=== PATIENT | female | born 2000 | race Caucasian/White ===

== ENCOUNTER 2023-06-19 23:12 | Emergency (ER) | payer OTHER, SELFPAY ==
--- NOTE | 2023-06-19 23:14 | ECG_ITS ---
Measurements Intervals [place] Rate: 154 P: -52 NC: 103 QRS: 154 QRSD: 92 T: -25 QT: 281 QTc: 451 Interpretive Statements SINUS TACHYCARDIA WITH SHORT NC INTERVAL, POSSIBLE ATRIAL FLUTTER MISSING LEAD II RIGHT AXIS DEVIATION POOR R WAVE PROGRESSION, CONSIDER ANTERIOR INFARCT ST-T WAVE ABNORMALITY IN INFERIOR LEADS- CONSIDER ISCHEMIA BASELINE ARTIFACT- I, II, AVL ABNORMAL ECG NO PREVIOUS ECG AVAILABLE FOR COMPARISON Electronically Signed On 06-20-2023 7:27:42 CDT by Sergio Henao D.O.
[2023-06-19 23:31] VITALS: BP 148/85; PULSE 148; RESP 22; TEMP 37.3; O2SAT 98
[2023-06-19] MEDS: SODIUM CHLORIDE 0.9% IV 1,000 ML 999 ML IV CONT (23:49)
[2023-06-19] MEDS: LORazepam INJ (*CRX) 2 MG/ML VIAL 1 MG IV PUSH (23:49)
[2023-06-19 23:55] VITALS: PULSE 134; RESP 15; O2SAT 99
[2023-06-20] VITALS (23 sets, daily range): BP systolic 105–130; BP diastolic 62–91; PULSE 85–133; RESP 13–23; O2SAT 97–100
[2023-06-20] MEDS: SODIUM CHLORIDE 0.9% IV 1,000 ML 999 ML IV CONT (00:17)
[2023-06-20 00:26] LABS: Basophils Percent Auto 0.3 % (0.2-1.2); Eosinophils Percent Auto 0.2 % (0-4.4); Hematocrit 41.2 % (37.0-47.0); Hemoglobin 13.9 g/dL (12.0-15.0); Immature Granulocyte Absolute 0.03 K/mm3 (0.00-0.031); Immature Granulocyte Percent A 0.3 % (0-0.5); Lymphocytes Absolute Auto 1.56 K/mm3 (0.9-3.2); Lymphocytes Percent Auto 13.3 % (18.3-44.2); Mean Corpuscular HGB Conc 33.7 g/dl (32-36); Mean Corpuscular Hemoglobin 30.7 pg (26-34); Mean Corpuscular Volume 90.9 fl (80-100); Monocytes Absolute Auto 0.6 K/mm3 (0.1-0.6); Monocytes Percent Auto 5.5 % (2.6-8.5); Neutrophils Absolute Auto 9.5 K/mm3 (1.3-6.7); Neutrophils Percent Auto 80.4 % (45.5-73.1); Platelet Count Result 303 k/mm3 (150-375); Red Blood Count 4.53 M/mm3 (4.2-5.4); Red Cell Distribution Width 11.9 % (11.5-14.5); White Blood Count 11.7 K/mm3 (4.5-10.0)
[2023-06-20 00:27] LABS: Alanine Aminotransferase 20 U/L (6-35); Albumin Level 4.8 g/dL (3.5-5.1); Alkaline Phosphatase 68 U/L (38-126); Anion Gap 13 mmol/L (8-16); Aspartate Amino Transferase 28 U/L (14-36); Bilirubin,Total 0.7 mg/dL (0.2-1.3); Blood Urea Nitrogen 13 mg/dL (7-17); Calcium 9.5 mg/dL (8.4-10.2); Carbon Dioxide 21 mmol/L (22-30); Chloride 103 mmol/L (98-107); Estimated CRCL calculation 128 ml/min; Estimated Glomerular Filt Rate > 60; Glucose 121 mg/dL (65-110); Magnesium 1.8 mg/dL (1.6-2.3); Potassium 3.8 mmol/L (3.4-5.0); Sodium 137 mmol/L (137-145)
[2023-06-20] MEDS: LORazepam INJ (*CRX) 2 MG/ML VIAL 1 MG IV PUSH (00:47)
[2023-06-20] MEDS: MAGNESIUM SULF 1 GM/D5W 100 ML 1 GM/100 ML BAG IVPB (00:47)
--- NOTE | 2023-06-20 00:58 | ED.GENADULT ---
HPI - General Adult General Chief complaint: Arrhythmia/Palpitations Stated complaint: heart pounding Time Seen by Provider: 06/19/23 23:34 History of Present Illness HPI narrative: Patient is a 22-year-old female who presents the emergency department with chief complaint of palpitations. Patient reports that she took some Adderall earlier this morning that was an extended release and then this evening was relaxing had intercourse with her partner and then ate a THC edible the patient reports that she felt as though her heart started beating extremely fast and decided to come to the emergency department for evaluation. Related Data Allergies Allergy/AdvReac Type Severity Reaction Status Date / Time No Known Allergies Allergy Verified 06/19/23 23:35 Review of Systems Review of Systems: A 10 system review of systems was completed on the patient and is negative except for what is stated in the HPI. Nursing and ancillary documentation was reviewed. Exam Narrative: GENERAL: Well-appearing, well-nourished, and in no acute distress. HEAD: Normocephalic, atraumatic. EYES: PERRLA and EOMI. ENT: Nares clear, no rhinorrhea or epistaxis. Mucous membranes dry. NECK: Supple. CHEST: Clear to auscultation. No respiratory distress. HEART: Tachycardic rate and regular rhythm. No murmur heard. Normal peripheral pulses. ABDOMEN: Soft, nontender, nondistended, normal active bowel sounds. EXTREMITIES: Normal range of motion. No edema. SKIN: Warm, dry, no rash. NEURO: No focal deficits. Alert and oriented x3. PSYCH: Normal mood and affect. Course Vital Signs Vital signs: Vital Signs Temperature 37.3 C 06/19/23 23:31 Pulse Rate 148 H 06/19/23 23:31 Respiratory Rate 22 H 06/19/23 23:31 Blood Pressure 148/85 H 06/19/23 23:31 Pulse Oximetry 98 06/19/23 23:31 Oxygen Delivery Room Air 06/19/23 23:31 Temperature 37.3 C 06/19/23 23:31 Pulse Rate 91 06/20/23 02:17 Respiratory Rate 15 06/20/23 02:17 Blood Pressure 106/69 06/20/23 02:17 Pulse Oximetry 98 06/20/23 02:17 Oxygen Delivery Room Air 06/19/23 23:31 Medical Decision Making MDM Narrative Medical decision making narrative: Differential diagnosis includes electrolyte abnormality, medication side effect, dehydration, SVT EKG showed a narrow complex tachycardia with a rate of 154 After receiving IV fluids and Ativan the patient's heart rate has come down to 92 Laboratory studies were obtained which showed normal symptoms electrolytes were within normal limits potassium was 3.8 Repeat EKG showed sinus rhythm rate of [address] elevation or ST depression Vital Signs Vital Signs: Vital Signs Temperature 37.3 C 06/19/23 23:31 Pulse Rate 148 H 06/19/23 23:31 Respiratory Rate 22 H 06/19/23 23:31 Blood Pressure 148/85 H 06/19/23 23:31 Pulse Oximetry 98 06/19/23 23:31 Oxygen Delivery Room Air 06/19/23 23:31 Temperature 37.3 C 06/19/23 23:31 Pulse Rate 91 06/20/23 02:17 Respiratory Rate 15 06/20/23 02:17 Blood Pressure 106/69 06/20/23 02:17 Pulse Oximetry 98 06/20/23 02:17 Oxygen Delivery Room Air 06/19/23 23:31 Lab Data 06/20/23 00:07 06/19/23 23:40 Labs: Lab Results 06/19/23 06/20/23 06/20/23 Range/Units 23:40 00:07 01:31 WBC 11.7 H (4.5-10.0) K/mm3 RBC 4.53 (4.2-5.4) M/mm3 Hgb 13.9 (12.0-15.0) g/dL Hct 41.2 (37.0-47.0) % MCV 90.9 (80-100) fl MCH 30.7 (26-34) pg MCHC 33.7 (32-36) g/dl RDW 11.9 (11.5-14.5) % Plt Count 303 (150-375) k/mm3 MPV 10.0 (7.4-10.4) fl Immature Gran % (Auto) 0.3 (0-0.5) % Neut % (Auto) 80.4 H (45.5-73.1) % Lymph % (Auto) 13.3 L (18.3-44.2) % [place] % (Auto) 5.5 (2.6-8.5) % Eos % (Auto) 0.2 (0-4.4) % Baso % (Auto) 0.3 (0.2-1.2) % Lymph # (Auto) 1.56 (0.9-3.2) K/mm3 [place] # (Auto) 0.6 (0.1-0.6) K/mm3 Eos # (Auto) 0.0 (0-0
[2023-06-20 01:39] LABS: Appearance Urine Clear (Clear); Bilirubin Urine Negative (Negative); Blood Urine Negative (Negative); Color Urine Yellow (Yellow); Glucose Urine UA Negative (Negative); Ketones Urine Negative (Negative); Leukocyte Esterase Ur Negative LEU/UL (Negative); Nitrate Urine Negative (Negative); Protein Urine Negative (Negative); Specific Grav Ur 1.005 (1.001-1.035); Urobilinogen Urine 0.2 mg/dL (<2.0); pH Urine 6.5 (5.0-9.0)
[2023-06-20 01:58] LABS: Add Urine Microscopic? NO
--- NOTE | 2023-06-20 02:51 | ECG_ITS ---
Measurements Intervals [place] Rate: 96 P: 33 [place]: 185 QRS: 104 QRSD: 99 T: 26 QT: 357 QTc: 452 Interpretive Statements SINUS RHYTHM RIGHT AXIS DEVIATION PATTERN CONSISTENT WITH PULMONARY DISEASE BORDERLINE ECG COMPARED TO ECG 06/19/2023 23:21:45 SINUS RHYTHM NOW PRESENT Electronically Signed On 06-20-2023 7:31:32 CDT by Sergio Henao D.O.
== END 2023-06-20 03:13 | disposition home or self-care (01) ==
PROVIDERS: Emergency Provider Emergency Medicine
DX: R00.2 Palpitations (principal)
CPT/HCPCS: 36415; 80053; 81003; 83735; 85025; 93005; 96361; 96365; 96374; 96375; 99284; J2060; J3475; J7030

== ENCOUNTER 2023-08-14 01:53 | Emergency (ER) | payer OTHER, SELFPAY ==
--- NOTE | ~2023-08-14 | CT_ITS ---
Non-contrast Head CT History: Headache Technique: Axial non-contrast imaging of the brain was performed. Dose reduction technique was used on this scan by utilizing automated exposure control and iterative reconstruction technique. The dose -length product (DLP) was 605.33 mGy-cm. Findings: There is no evidence of intracranial hemorrhage, mass lesion, or acute infarct. Brain par enchyma appears normal. The ventricles and subarachnoid spaces are normal in size. The calvarium ap pears normal. The visualized paranasal sinuses and mastoid air cells are clear. Impression: No significant abnormality seen. Reviewed, dictated and finalized at location . TOLOGIST Impression: No significant abnormality seen.
[2023-08-14 01:56] VITALS: BP 155/66; PULSE 105; RESP 18; TEMP 36.7; O2SAT 100
--- NOTE | 2023-08-14 02:14 | ED.GENADULT ---
HPI - General Adult General Chief complaint: Headache <SAUD Talamantes Last Filed: 08/14/23 02:59> Stated complaint: headache <SAUD Talamantes Last Filed: 08/14/23 02:59> Time Seen by Provider: 08/14/23 02:00 <SAUD Talamantes Last Filed: 08/14/23 02:59> Source: patient <SAUD Talamantes Last Filed: 08/14/23 02:59> Mode of arrival: ambulatory <SAUD Talamantes Last Filed: 08/14/23 02:59> Limitations: no limitations <SAUD Talamantes Last Filed: 08/14/23 02:59> History of Present Illness HPI narrative: This is a 23-year-old female who presents to the ED with chief complaint of headache x3 days. Reports I think I am having the worst headache of my life. States she does not normally get headaches or migraines. Reports that the top of her scalp started hurting initially and has since spread throughout the whole head. She does note that it seems to be somewhat positional in nature; worse whenever she lays down. States she stopped taking her Adderall yesterday because she was unsure if it was affecting it. States she stopped smoking weed 1.5 weeks ago. When I ask about speech changes, she states that she has been having increased episodes of confusion and pausing while speaking and relates this to her psychosis. Reports that she feels like everything is not real sometimes. Reports she is very focused on the involuntary like her heartbeat or what her brain is doing. States the last time she had a headache like this, it felt like something was gushing down the back of my neck. Denies any injuries. Denies sick contacts or recent illness. Denies numbness, weakness, syncope, fevers, chills, nausea, vomiting, neck pain. <SAUD Talamantes Last Filed: 08/14/23 02:59> Related Data Allergies/adverse reactions: Allergies Allergy/AdvReac Type Severity Reaction Status Date / Time No Known Allergies Allergy Verified 08/14/23 02:01 <SAUD Talamantes Last Filed: 08/14/23 02:59> Review of Systems Review of Systems: All systems as dictated in HPI <Michael Ratliff PA-C - Last Filed: 08/14/23 02:59> Exam Narrative: GENERAL: Well-appearing, well-nourished, and in no acute distress. HEAD: Normocephalic, atraumatic. EYES: PERRLA and EOMI. ENT: Nares clear, no rhinorrhea or epistaxis. Mucous membranes moist. Oropharynx without tonsillar hypertrophy exudate or other lesions. NECK: Supple. No adenopathy or masses. No meningeal signs. CHEST: No respiratory distress. Clear to auscultation. No wheezes rales or rhonchi HEART: Regular rate and rhythm. No murmur heard. Normal peripheral pulses. ABDOMEN: Soft, nontender, nondistended, normal active bowel sounds. MSK: Normal range of motion. No edema. SKIN: Warm, dry, no rash. NEURO: Alert and oriented x4. No focal deficits. Cranial nerves II through XII intact. 5 out of 5 strength and sensation in the upper and lower extremities. Negative pronator drift. Ambulatory without difficulty. No dysarthria. Answers questions appropriately. PSYCH: Normal mood and affect. <Michael Ratliff PA-C - Last Filed: 08/14/23 02:59> Course MANAGER FREELANCE/PA Physician Supervision This visit was performed by both the physician and an APC. I performed all aspects of the MDM as documented <Jg Daniel MD - Last Filed: 08/14/23 04:48> Vital Signs Vital signs: Vital Signs Temperature 36.7 C 08/14/23 01:56 Pulse Rate 105 H 08/14/23 01:56 Respiratory Rate 18 08/14/23 01:56 Blood Pressure 155/66 H 08/14/23 01:56 Pulse Oximetry 100 08/14/23 01:56 Oxygen Delivery Room Air 08/14/23 01:56 Temperature 36.7 C 08/14/23 01:56 Pulse Rate 105 H 08/14/23 01:56 Respiratory Rate 18 08/14/23 01:56 Blood Pressure 155/66 H 08/14/23 01:56 Pulse Oximetry 100 08/14/23 01:56 Oxygen Delivery Room Air 08/14/23 01:56 <Michael Ratliff PA-C - Last Filed: 08/14/23 02:59>
[2023-08-14] MEDS: KETOROLAC 15 MG/ML VIAL (*BKC) IV PUSH (03:06)
[2023-08-14] MEDS: PROCHLORPERAZINE EDISYLATE 10 MG/2 ML VIAL IV PUSH (03:06)
[2023-08-14] MEDS: diphenhydrAMINE HCl INJ 50 MG/ML VIAL 25 MG IV PUSH (03:06)
[2023-08-14] MEDS: SODIUM CHLORIDE 0.9% IV 1,000 ML 999 ML IV CONT (03:07)
[2023-08-14 03:11] LABS: Basophils Percent Auto 0.1 % (0.2-1.2); Eosinophils Absolute Auto 0.1 K/mm3 (0-0.3); Eosinophils Percent Auto 1.1 % (0-4.4); Hematocrit 41.7 % (37.0-47.0); Hemoglobin 14.4 g/dL (12.0-15.0); Immature Granulocyte Absolute 0.02 K/mm3 (0.00-0.031); Immature Granulocyte Percent A 0.2 % (0-0.5); Lymphocytes Absolute Auto 1.73 K/mm3 (0.9-3.2); Lymphocytes Percent Auto 21.1 % (18.3-44.2); Mean Corpuscular HGB Conc 34.5 g/dl (32-36); Mean Corpuscular Hemoglobin 30.4 pg (26-34); Mean Platelet Volume 10.2 fl (7.4-10.4); Monocytes Absolute Auto 0.6 K/mm3 (0.1-0.6); Monocytes Percent Auto 6.7 % (2.6-8.5); Neutrophils Absolute Auto 5.8 K/mm3 (1.3-6.7); Neutrophils Percent Auto 70.8 % (45.5-73.1); Platelet Count Result 307 k/mm3 (150-375); Red Blood Count 4.74 M/mm3 (4.2-5.4); Red Cell Distribution Width 11.7 % (11.5-14.5); White Blood Count 8.2 K/mm3 (4.5-10.0)
[2023-08-14 03:37] LABS: Alanine Aminotransferase 19 U/L (6-35); Albumin Level 4.6 g/dL (3.5-5.1); Alkaline Phosphatase 79 U/L (38-126); Anion Gap 10 mmol/L (8-16); Aspartate Amino Transferase 26 U/L (14-36); Bilirubin,Total 0.6 mg/dL (0.2-1.3); Blood Urea Nitrogen 11 mg/dL (7-17); Calcium 9.6 mg/dL (8.4-10.2); Carbon Dioxide 23 mmol/L (22-30); Chloride 105 mmol/L (98-107); Estimated CRCL calculation 169 ml/min; Estimated Glomerular Filt Rate > 60; Glucose 107 mg/dL (65-110); Potassium 3.8 mmol/L (3.4-5.0); Sodium 138 mmol/L (137-145)
[2023-08-14 05:04] VITALS: BP 139/82; PULSE 88; RESP 16; O2SAT 100
== END 2023-08-14 05:05 | disposition left against medical advice (07) ==
PROVIDERS: Physician Assistant; Emergency Provider Emergency Medicine
DX: R51.9 Headache, unspecified (principal)
CPT/HCPCS: 36415; 70450; 80053; 85025; 96361; 96374; 96375; 99284; J0780; J1200; J1885; J7030